=== PATIENT | female | born 1995 | race African-American/Black ===

== ENCOUNTER 2019-05-28 18:27 | Emergency (ER) | payer SELFPAY ==
[2019-05-28 18:34] VITALS: BP 130/82; PULSE 79; RESP 18; TEMP 36.3; O2SAT 100
--- NOTE | 2019-05-28 19:09 | ED.UPPEXIN ---
HPI - Extremity Injury (Upper) General Chief Complaint: Extremity Injury, Upper Stated Complaint: left thumb injury Time Seen by Provider: 05/28/19 18:57 Source: patient Mode of arrival: ambulatory Limitations: no limitations History of Present Illness HPI narrative: A 24 y/o female pt presents to the ED, with c/o laceration to her lt thumb and thumbnail. Pt states she was at work and cut her finger on a razor blade that is used to cut tape. She is complaining of pain to the site of laceration. Pt states she is unsure when her last tetanus shot was. complaint: injury to: left (thumb/thumbnail) Onset (ago): minute(s) Other Extremity Injury: Left: fingers (thumb/thumbnail) Place: work Context: injury (cut on razor blade used to cut tape at work) Associated symptoms: other (lt thumb pain) Related Data Home Medications Medication Instructions Recorded Confirmed No Home Medications 05/28/19 05/28/19 Allergies Allergy/AdvReac Type Severity Reaction Status Date / Time No Known Allergies Allergy Verified 05/28/19 18:40 Review of Systems Review of Systems: All systems reviewed & are unremarkable except as noted in HPI and below Musculoskeletal: Musculoskeletal: Reports other (pain to lt thumb and thumbnail) Integumentary/Breasts: Skin/Breast: Reports wounds (lacteration to lt thumb and thumbnail) PMFSH Past Medical History Medical History (Updated 05/28/19 @ 21:55 by Brian Low MD) Medical history unknown Surgical History Surgical History (Updated 05/28/19 @ 19:39 by [facility]) Surgical history unknown Social History Social History (Updated 05/28/19 @ 19:40 by [facility]ao [facility] [employer]) Occupation/Education: occupation Gender identity (if verbalized by the patient): Female Exam Narrative: Exam Narrative: GENERAL: Well-appearing, well-nourished, and in no acute distress. HEAD: Normocephalic, atraumatic. HEART: Regular rate and rhythm. Normal peripheral pulses. EXTREMITIES: Normal range of motion. No edema. Left thumb with triangular laceration through the radial and midline aspect of the distal part of the nail. No true avulsion but is causing the piece of nail to elevate and separate from the rest the nail by approximately 1-2 mm in each direction. Neurovascular intact. SKIN: Warm, dry, no rash. NEURO: Alert and oriented x3. Course Course Emergency Course: Covan was used after thoroughly cleaning the wound to realign the thumbnail. I don't think removing the nail is reasonable, I would like to protect the nail bed. Tetanus updated. No subungal hematoma present. Vital Signs Vital signs: Vital Signs Temperature 97.4 F L 05/28/19 18:34 Pulse Rate 79 05/28/19 18:34 Respiratory Rate 18 05/28/19 18:34 Blood Pressure 130/82 05/28/19 18:34 Pulse Oximetry 100 05/28/19 18:34 Temperature 97.4 F L 05/28/19 18:34 Pulse Rate 79 05/28/19 18:34 Respiratory Rate 18 05/28/19 18:34 Blood Pressure 130/82 05/28/19 18:34 Pulse Oximetry 100 05/28/19 18:34 Discharge Plan Discharge Clinical Impression: Laceration of finger nail bed Qualifiers: Encounter type: initial encounter Qualified Code(s): S61.319A - Laceration without foreign body of unspecified finger with damage to nail, initial encounter Patient Disposition: Home, Self-Care Condition: Stable Instructions: Finger Laceration (ED) Additional Instructions: Return the ER if your finger is red and hot, you have pus draining from your wound, you develop fever 100.4 ?F, you have additional concerns. Please keep a pressure dressing on your fingernail for the next 5-7 days to help with healing of the nailbed. Prescriptions: No Action No Home Medications RF: 0 Follow-up/Referrals: Del Hilton MD [Physician] - 1 Week PHYSICIAN,[facility] [Primary Care Provider] -
[2019-05-28] MEDS: LIDOCAINE HCL 1% LOCAL INJ 20 ML VIAL INFILTRATE (20:44)
[2019-05-28] MEDS: TETANUS,DIPHTHERIA,AC PERTUSSIS ADULT 0.5 ML (ADACEL) IM (22:30)
== END 2019-05-28 22:42 | disposition home or self-care (01) ==
PROVIDERS: Emergency Provider Emergency Medicine
DX: S61.112A Laceration without foreign body of left thumb with damage to nail, initial encounter (principal); W27.0XXA Contact with workbench tool, initial encounter; Z23 Encounter for immunization
CPT/HCPCS: 90471; 90715; 99282